=== PATIENT | female | born 1985 | race Caucasian/White ===

== ENCOUNTER 2024-03-23 02:43 | Emergency (ER) | payer OTHER, SELFPAY ==
[2024-03-23 02:43] VITALS: BMI 33.3
[2024-03-23 02:47] VITALS: BP 139/98
[2024-03-23 03:16] VITALS: BP 112/81
[2024-03-23 03:39] LABS: % Basophils 0.2 % (0-2); % Eosinophils 0.5 % (0-6); % Immature Granulocytes 0.2 % (0-0.5); % Lymphocytes 18.5 % (20.5-51.1); % Monocytes 6.4 % (1.7-9.3); % Neutrophils 74.2 % (42.2-75.2); Absolute Lymphocytes 1.6 10^3/uL (1.2-3.4); Absolute Monocytes 0.6 10^3/uL (0.1-0.6); Absolute Neutrophils 6.5 10^3/uL (1.4-6.5); Hematocrit 37.9 % (37.0-47.0); Hemoglobin 13.5 g/dL (12.0-16.0); Mean Corp Hgb Conc. 35.6 g/dL (33.0-37.0); Mean Corpuscular Hgb 31.3 pg (27.0-31.0); Mean Corpuscular Volume 87.9 fL (81.0-99.0); Mean Platelet Volume 8.4 fL (7.4-10.4); Nucleated Red Blood Cells % 0 %; Platelet Count 292 10^3/uL (130-400); Red Blood Cell Count 4.31 10^6/uL (4.20-5.40); White Blood Cell Count 8.7 10^3/uL (4.8-10.8)
[2024-03-23] MEDS: TORADOL 15 MG IV (03:41)
[2024-03-23] MEDS: NSS 1000 IV (03:42)
[2024-03-23 04:04] LABS: ALT (SGPT) 19 U/L (0-35); AST (SGOT) 24 U/L (14-36); Albumin 4.4 g/dl (3.5-5.0); Alkaline Phosphatase 63 U/L (38-126); Blood Urea Nitrogen 20 mg/dl (7-17); Calcium 9.5 mg/dl (8.4-10.2); Carbon Dioxide 27 mmol/L (22-30); Chloride 105 mmol/L (98-107); Estimated Creatinine Clearance 120 ml/min; Glucose 105 mg/dl (70-99); Lipase 79 U/L (23-300); Potassium 4.3 mmol/L (3.5-5.1); Sodium 138 mmol/L (135-145); Total Bilirubin 0.7 mg/dl (0.2-1.3); Total Protein 6.8 g/dl (6.3-8.2); eGFR > 60.00
--- NOTE | 2024-03-23 04:06 | ED.GENMED ---
History of Present Illness
General
Chief Complaint: Fainting/Passed Out
Time Seen by Provider: 03/23/24 02:53
History of Present Illness
History of Present Illness:
Pt is a 39 y/o female presenting with RUQ pain x2 weeks and passing out today. She states her pain is a constant, dull, 4/10 for the past 2 weeks. She states it is located to the RUQ and occasionally radiates to the right flank/back area. She states
that eating makes it worse. She states she has been having some nausea but no vomiting. She states that tonight she got out of beat, started to feel dizzy, and she passed out and hit her chin. She denies any seizure like activity. She denies any
headaches, fevers, cough, chest pain, palpations, shortness of breath, or changes in bowel habits.
Past History
Past History
ED Past Medical History: HTN
ED Past Surgical History: Appendectomy and
Social History
Tobacco: Non-smoker
Alcohol: None
Drug: None
Phy Exam
Physical Exam
Physical Exam:
GENERAL: Alert , in no apparent distress
EYE: pupils equal and reactive
Throat: Airway intact, no exudates
NECK: Supple, no significant adenopathy.
CARDIAC: Regular rate and rhythm .
LUNGS: Clear breath sounds bilaterally, no acute respiratory distress, no wheezes/rales/rhonchi
ABDOMEN: Pain to palpation in the RUQ. Soft, nondistended, no cvat
NEUROLOGICAL: Alert and oriented, no focal neuro deficits
SKIN: 3 cm laceration under the chin extending through the dermis.
MUSCULOSKELETAL: No edema, well perfused.
PSYCH: Normal and appropriate interaction.
Course
Orders/Labs/Results
Orders:
Orders
03/23/24 03:21
0.9% Sodium Chloride 1000 ml [Nss] 1,000 ml IV BOLUS
Ketorolac [Toradol] 15 mg IV NOW STA
Test Result ONCE
03/23/24 03:22
US Abdomen Complete/Upper Urgent
Comment:
Reason For Exam: ruq pain
03/23/24 03:32
Complete Blood Count/With Diff Urgent
Comprehensive Metabolic Panel Urgent
Lipase Urgent
03/23/24 04:51
HCG, Urine Qualitative Screen Urgent
Date Specimen was Collected: 03/23/24
Time Specimen was Collected: 04:47
Urinalysis Reflex To Culture Urgent
Date Specimen was Collected: 03/23/24
Time Specimen was Collected: 04:47
Abnormal Lab Results
03/23/24
03:32
MCH 31.3 H pg
(27.0-31.0)
Lymphocytes % 18.5 L %
(20.5-51.1)
BUN 20 H mg/dl
(7-17)
Glucose 105 H mg/dl
(70-99)
03/23/24 03:32
03/23/24 03:32
Vital Signs
Initial and Last Documented VS:
Initial Vital Signs
Temp Pulse Resp BP Pulse Ox
98.7 F 86 20 139/98 98
03/23/24 02:47 03/23/24 02:47 03/23/24 02:47 03/23/24 02:47 03/23/24 02:47
Last Documented Vital Signs
Temp Pulse Resp BP Pulse Ox
98.7 F 86 20 109/66 98
03/23/24 02:47 03/23/24 02:47 03/23/24 02:47 03/23/24 05:00 03/23/24 02:47
Procedures
Laceration Closure
Generalized Lower Anterior Medial Chin:
Status of Wound: clean
Size of Wound in cm: 3
Description of Wound Edges: sharp
Preparation: cleaned with saline
Anesthesia: 1% Lidocaine with epi
Revision/Debridement: routine- no revision
Wound exploration: explored to base- no FB
Type of Closure: single layer closure
Skin Closure Material: 5-0 chromic gut
Number of sutures: 6
*Radiology
Radiology exam reviewed: radiology read reviewed
*Pulse Oximetry
Patient hypoxic: no
*EKG
Interpreted by ED Provider?: NA
*Advertising Operations Coordinator Interpretation
Rate: Advertising Operations Coordinator- N/A
*Critical Care Note
Total Time (30-74mins, 75-104mins- exclusive of procedures): Not Applicable
ED Attending Note
-
Portions of this chart may have been created with voice recognition software.� Occasional wrong word or��sound alike� substitutions may have occurred due to the inherent limitations of voice recognition software.
Discharge Plan
Departure
Prescriptions:
No Action
acetaminophen 325 MG tablet
650 mg PO Q4HPRN PRN (Reason: mild pain) 0RF
ibuprofen 600 MG tablet
600 mg PO Q4HPRN PRN (Reason: cramps) 0RF
PNV 200-revzs-keuak-3-fish oil [ with DHA-Folic Acid] 1 EACH tablet,chewable
1 ea PO DAILY
Calcium Capsule
1 tab PO DAILY
Referrals:
Karishma Escobar MD [Family Provider] -
Interventions
Interventions:
*Risk Screen - Suicide Last Done: 03/23/24 02:47
*General Assessment Last Done: 03/23/24 02:47
*Neglect/Abuse Screening Last Done: 03/23/24 02:47
ED- Fall Risk Assessment Last Done: 03/23/24 02:47
*ED COVID-19 Vaccine History Last Done: 03/23/24 02:47
ED- Cardiac Assessment Last Done: 03/23/24 03:59
ED- Neurological Assessment Last Done: 03/23/24 03:59
ED-Skin Assessment Last Done: 03/23/24 03:59
Discharge Date and Time
Print Language: WELSH
[2024-03-23 05:00] VITALS: BP 109/66
[2024-03-23 05:06] LABS: Urine Albumin Trace (Neg - Trace); Urine Bilirubin Negative (Negative); Urine Character Clear (Clear); Urine Color Yellow; Urine Glucose Negative (Negative); Urine Ketone Negative (Negative); Urine Leukocyte Negative (Negative); Urine Nitrite Negative (Negative); Urine Occult Blood Negative (Negative); Urine Urobilinogen Negative (Neg - 1+)
[2024-03-23 05:16] LABS: HCG, Urine Qualitative Screen Negative
== END 2024-03-23 05:59 | disposition home or self-care (01) ==
LOC: EMR 02:43
PROVIDERS: EMERGENCY PHYSICIAN Emergency Medicine; FAMILY PHYSICIAN Emergency Medicine
DX: R55 Syncope and collapse (principal); I10 Essential (primary) hypertension; Z90.49 Acquired absence of other specified parts of digestive tract
CPT/HCPCS: 99284; 12013; 96374; 96361; 76700; 80053; 81003; 81025; 83690; 85025

== ENCOUNTER → 2024-04-22 09:06 | Outpatient (REF) | payer OTHER, SELFPAY | LOC: HWRCS 09:06 | PROVIDERS: ATTENDING PHYSICIAN Emergency Medicine | DX: R55 Syncope and collapse (principal); I49.3 Ventricular premature depolarization | CPT/HCPCS: 93306 ==

== ENCOUNTER → 2024-04-24 08:03 | Outpatient (REF) | payer OTHER, SELFPAY | LOC: RAD 08:03 | PROVIDERS: ATTENDING PHYSICIAN Surgery; FAMILY PHYSICIAN Emergency Medicine | DX: K82.8 Other specified diseases of gallbladder (principal) | CPT/HCPCS: 78227; A9537; J2805 ==

== ENCOUNTER → 2024-09-01 10:48 | Outpatient (REF) | payer OTHER, SELFPAY | LOC: PNTC 10:48 | PROVIDERS: ATTENDING PHYSICIAN Obstetrics & Gynecology | DX: O99.210 Obesity complicating pregnancy, unspecified trimester (principal); O09.529 Supervision of elderly multigravida, unspecified trimester; O13.9 Gestational [pregnancy-induced] hypertension without significant proteinuria, unspecified trimester | CPT/HCPCS: 76805 ==

== ENCOUNTER → 2024-09-29 16:02 | Outpatient (REF) | payer OTHER, SELFPAY | LOC: PNTC 16:02 | PROVIDERS: ATTENDING PHYSICIAN Obstetrics & Gynecology | DX: O99.210 Obesity complicating pregnancy, unspecified trimester (principal); O09.529 Supervision of elderly multigravida, unspecified trimester; O13.9 Gestational [pregnancy-induced] hypertension without significant proteinuria, unspecified trimester; O34.219 Maternal care for unspecified type scar from previous cesarean delivery | CPT/HCPCS: 76811; 76817; 93976 ==

== ENCOUNTER → 2024-10-27 16:13 | Outpatient (REF) | payer OTHER, SELFPAY | LOC: PNTC 16:13 | PROVIDERS: ATTENDING PHYSICIAN Student in an Organized Health Care Education/Training Program | DX: O09.519 Supervision of elderly primigravida, unspecified trimester (principal) | CPT/HCPCS: 76816 ==

== ENCOUNTER → 2024-12-02 16:32 | Outpatient (REF) | payer OTHER, SELFPAY | LOC: PNTC 16:32 | PROVIDERS: ATTENDING PHYSICIAN Student in an Organized Health Care Education/Training Program | DX: O09.529 Supervision of elderly multigravida, unspecified trimester (principal) | CPT/HCPCS: 76816 ==

== ENCOUNTER → 2024-12-25 10:01 | Outpatient (REF) | payer OTHER, SELFPAY | LOC: PNTC 10:01 | PROVIDERS: ATTENDING PHYSICIAN Obstetrics & Gynecology | DX: O09.529 Supervision of elderly multigravida, unspecified trimester (principal); O10.31 Pre-existing hypertensive heart and chronic kidney disease complicating pregnancy; O10.119 Pre-existing hypertensive heart disease complicating pregnancy, unspecified trimester; O99.210 Obesity complicating pregnancy, unspecified trimester | CPT/HCPCS: 59025; 76815 ==

== ENCOUNTER → 2025-01-01 09:53 | Outpatient (REF) | payer OTHER, SELFPAY | LOC: PNTC 09:53 | PROVIDERS: ATTENDING PHYSICIAN Obstetrics & Gynecology | DX: O09.529 Supervision of elderly multigravida, unspecified trimester (principal); O10.119 Pre-existing hypertensive heart disease complicating pregnancy, unspecified trimester; O99.210 Obesity complicating pregnancy, unspecified trimester | CPT/HCPCS: 59025; 76816 ==

== ENCOUNTER → 2025-01-08 10:45 | Outpatient (REF) | payer OTHER, SELFPAY | LOC: PNTC 10:45 | PROVIDERS: ATTENDING PHYSICIAN Obstetrics & Gynecology | DX: O09.529 Supervision of elderly multigravida, unspecified trimester (principal); O99.210 Obesity complicating pregnancy, unspecified trimester; O10.119 Pre-existing hypertensive heart disease complicating pregnancy, unspecified trimester | CPT/HCPCS: 59025; 76815 ==

== ENCOUNTER → 2025-01-15 10:34 | Outpatient (REF) | payer OTHER, SELFPAY | LOC: PNTC 10:34 | PROVIDERS: ATTENDING PHYSICIAN Obstetrics & Gynecology | DX: O09.529 Supervision of elderly multigravida, unspecified trimester (principal); O10.119 Pre-existing hypertensive heart disease complicating pregnancy, unspecified trimester; O99.210 Obesity complicating pregnancy, unspecified trimester | CPT/HCPCS: 59025; 76815 ==

== ENCOUNTER → 2025-01-22 10:44 | Outpatient (REF) | payer OTHER, SELFPAY | LOC: PNTC 10:44 | PROVIDERS: ATTENDING PHYSICIAN Obstetrics & Gynecology | DX: O09.529 Supervision of elderly multigravida, unspecified trimester (principal); O10.31 Pre-existing hypertensive heart and chronic kidney disease complicating pregnancy; O99.210 Obesity complicating pregnancy, unspecified trimester | CPT/HCPCS: 59025; 76815 ==

== ENCOUNTER 2025-01-23 21:02 | Observation (INO) | payer OTHER, SELFPAY ==
[2025-01-23 21:29] VITALS: BP 131/85; BMI 39.3
[2025-01-23] MEDS: LR 1000 IV (21:45)
[2025-01-23 22:02] LABS: Hematocrit 35.7 % (37.0-47.0); Hemoglobin 12.4 g/dL (12.0-16.0); Mean Corp Hgb Conc. 34.7 g/dL (33.0-37.0); Mean Corpuscular Hgb 30.6 pg (27.0-31.0); Mean Corpuscular Volume 88.1 fL (81.0-99.0); Mean Platelet Volume 9.6 fL (7.4-10.4); Platelet Count 221 10^3/uL (130-400); Red Blood Cell Count 4.05 10^6/uL (4.20-5.40); Red Cell Dist. Width 14.6 % (11.5-14.5); White Blood Cell Count 9.1 10^3/uL (4.8-10.8)
[2025-01-23 22:03] LABS: Urine Albumin 1+ (Neg - Trace); Urine Bilirubin Negative (Negative); Urine Character Clear (Clear); Urine Color Yellow; Urine Glucose Negative (Negative); Urine Ketone Negative (Negative); Urine Leukocyte Negative (Negative); Urine Nitrite Negative (Negative); Urine Occult Blood Negative (Negative); Urine Urobilinogen Negative (Neg - 1+)
[2025-01-23 22:14] LABS: Urine Squamous Cell >30 /LPF (Few)
[2025-01-23 22:15] LABS: Urine Bacteria Few (Negative); Urine Red Blood Cell 0-2 /HPF (0-2); Urine Yeast Few (Negative)
[2025-01-23 22:20] LABS: ALT (SGPT) 14 U/L (0-35); AST (SGOT) 30 U/L (14-36); Albumin 3.6 g/dl (3.5-5.0); Alkaline Phosphatase 118 U/L (38-126); Blood Urea Nitrogen 13 mg/dl (7-17); Calcium 8.7 mg/dl (8.4-10.2); Carbon Dioxide 20 mmol/L (22-30); Chloride 110 mmol/L (98-107); Estimated Creatinine Clearance > 125 ml/min; Glucose 79 mg/dl (70-99); Potassium 4.2 mmol/L (3.5-5.1); Sodium 135 mmol/L (135-145); Total Bilirubin 0.7 mg/dl (0.2-1.3); Total Protein 6.4 g/dl (6.3-8.2); eGFR > 60.00
[2025-01-23 22:29] LABS: Protein/creatinine Ratio 0.3; Urine Protein 13 mg/dl
== END 2025-01-23 23:09 | disposition home or self-care (01) ==
LOC: LDRP 21:02
PROVIDERS: ADMITTING PHYSICIAN Obstetrics & Gynecology; FAMILY PHYSICIAN Nurse Practitioner Family
DX: O26.893 Other specified pregnancy related conditions, third trimester (principal); Z3A.36 36 weeks gestation of pregnancy; E86.0 Dehydration; R11.12 Projectile vomiting; Z63.4 Disappearance and death of family member; Z63.79 Other stressful life events affecting family and household
CPT/HCPCS: 80053; 81003; 81015; 82570; 84156; 85027; 86850; 86900; 86901; G0378

== ENCOUNTER → 2025-01-29 10:18 | Outpatient (REF) | payer OTHER, SELFPAY | LOC: PNTC 10:18 | PROVIDERS: ATTENDING PHYSICIAN Obstetrics & Gynecology | DX: O14.00 Mild to moderate pre-eclampsia, unspecified trimester (principal); O09.529 Supervision of elderly multigravida, unspecified trimester; O99.210 Obesity complicating pregnancy, unspecified trimester | CPT/HCPCS: 59025; 76816 ==

== ENCOUNTER → 2025-02-05 10:24 | Outpatient (REF) | payer OTHER, SELFPAY | LOC: PNTC 10:24 | PROVIDERS: ATTENDING PHYSICIAN Obstetrics & Gynecology | DX: O09.529 Supervision of elderly multigravida, unspecified trimester (principal); O13.4 Gestational [pregnancy-induced] hypertension without significant proteinuria, complicating childbirth; O99.210 Obesity complicating pregnancy, unspecified trimester | CPT/HCPCS: 59025; 76815 ==

== ENCOUNTER 2025-02-10 09:38 | Inpatient (IN) | payer OTHER, SELFPAY ==
[2025-02-10 09:58] VITALS: BP 125/66; BMI 39.9
[2025-02-10] MEDS: ANCEF 10 IV (10:30)
[2025-02-10] MEDS: TYLENOL 1000 MG PO (10:30)
[2025-02-10] MEDS: LR 1000 IV (10:31)
[2025-02-10] MEDS: BICITRA 30 ML PO (10:31)
[2025-02-10 10:34] LABS: Hematocrit 36.8 % (37.0-47.0); Hemoglobin 12.9 g/dL (12.0-16.0); Mean Corp Hgb Conc. 35.1 g/dL (33.0-37.0); Mean Corpuscular Hgb 30.8 pg (27.0-31.0); Mean Corpuscular Volume 87.8 fL (81.0-99.0); Mean Platelet Volume 9.6 fL (7.4-10.4); Platelet Count 247 10^3/uL (130-400); Red Blood Cell Count 4.19 10^6/uL (4.20-5.40); Red Cell Dist. Width 15.5 % (11.5-14.5); White Blood Cell Count 8.9 10^3/uL (4.8-10.8)
[2025-02-10] MEDS: MORPHINE SULFATE 2 MG IV (15:28)
[2025-02-10 17:07] LABS: Glucose - Point of Care 64 mg/dl (70-99)
[2025-02-10] MEDS: TORADOL 15 MG IV (18:26)
[2025-02-10] MEDS: TYLENOL 650 MG PO (22:26)
[2025-02-11] MEDS: TORADOL 15 MG IV ×3 (00:43→13:34)
[2025-02-11 04:38] LABS: Hematocrit 31.7 % (37.0-47.0); Mean Corp Hgb Conc. 34.7 g/dL (33.0-37.0); Mean Corpuscular Hgb 30.8 pg (27.0-31.0); Mean Corpuscular Volume 88.8 fL (81.0-99.0); Mean Platelet Volume 9.6 fL (7.4-10.4); Platelet Count 221 10^3/uL (130-400); Red Blood Cell Count 3.57 10^6/uL (4.20-5.40); Red Cell Dist. Width 15.2 % (11.5-14.5); White Blood Cell Count 13.8 10^3/uL (4.8-10.8)
[2025-02-11] MEDS: TYLENOL 650 MG PO ×2 (08:04→13:35)
[2025-02-11] MEDS: PRENATAL PLUS 1 TABLET PO (08:04)
[2025-02-11] MEDS: PERCOCET 5/325 1 TABLET PO ×2 (18:19→22:27)
[2025-02-11] MEDS: MOTRIN 600 MG PO (20:04)
[2025-02-12] MEDS: MYLICON 80 MG PO ×2 (00:54→08:25)
[2025-02-12] MEDS: PERCOCET 5/325 1 TABLET PO ×2 (02:55→08:26)
[2025-02-12] MEDS: MOTRIN 600 MG PO ×3 (02:55→18:19)
[2025-02-12] MEDS: SENOKOT-S 1 TABLET PO (08:25)
[2025-02-12] MEDS: PRENATAL PLUS 1 TABLET PO (08:26)
[2025-02-12] MEDS: TYLENOL 650 MG PO ×3 (12:08→20:32)
[2025-02-13] MEDS: DULCOLAX 10 MG PO (00:21)
[2025-02-13] MEDS: MOTRIN 600 MG PO ×3 (00:29→13:30)
[2025-02-13] MEDS: TYLENOL 650 MG PO ×2 (01:24→12:17)
[2025-02-13] MEDS: PRENATAL PLUS 1 TABLET PO (07:13)
[2025-02-13] MEDS: SENOKOT-S 1 TABLET PO (07:14)
[2025-02-13] MEDS: PERCOCET 5/325 1 TABLET PO ×2 (07:17→17:22)
[2025-02-13 14:23] LABS: Syphilis/T. pallidum Ab Reflex Negative (Negative)
--- NOTE | 2025-02-13 17:16 | W.DS.TRANS ---
DC Summary - Wet Roaster
-
Discharge Instructions:
Discharge Diagnosis/Procedures delivered via repeat section
Diet No restrictions
Activity No strenuous activity
Driving Restrictions No driving for 2 weeks
Bathing Restrictions OK to Shower
Instructions:
Stand-Alone Forms: LDRP Delivery
Changes to Home Medications: No
Discharge Medications:
DC Medications w/original date entered in [employer]
103-folic acid 400 mcg-omeg3 32.5 mg-dha-fish oil chew tablet ( with DHA and Folic Acid) 1 ea PO DAILY Supplement 10/17/20
famotidine 20 mg tablet 20 mg PO DAILY 01/23/25
magnesium 1 tab PO DAILY 01/23/25
acetaminophen 325 mg tablet 650 mg (2 x 325 mg) PO Q4HPRN PRN mild pain #1 tab 02/13/25
ibuprofen 600 mg tablet 600 mg PO Q6HPRN PRN cramps #60 tabs 02/13/25
Home Medication Changes
Pending Results: No
--- NOTE | 2025-02-13 17:16 | W.DCSUMMARY ---
Discharge Summary
Discharge Data
Date of Admission: 02/10/25
Date of Discharge: 02/13/25
-
Pending Results: No
Hospital Course
Patient is a 40yo who presented to Labor and Delivery at 39.2 weeks on 02/10 for schedule repeat section. She had a history of 2 prior section and was not a candidate for a trial of labor. She underwent repeat
section on 02/10, delivering a viable male weighing 9lb 14oz with meconium stained amniotic fluid. The estimated blood loss for the procedure was 630mL. The procedure was uncomplicated. On postoperative day one, she was doing well with no
concerns. Her hemoglobin was 11.0 and she had no signs or symptoms of anemia. On postoperative day two, she was still doing well. Her pain was controlled. She was passing flatus, but had not had a bowel movement. On postoperative day three, she was
meeting all milestones. She was tolerating a regular diet, voiding spontaneously, passing flatus and had no heavy lochia. She was discharged home after discharge instructions and return precautions were reviewed. She was instructed to
follow up in 2 weeks for an incision check.
Discharge Plan
-
Patient Disposition: Home (Routine Discharge)
Discharge Diagnosis/Procedures: delivered via repeat section
Condition: Good
Diet: No restrictions
Activity: No strenuous activity
Driving Restrictions: No driving for 2 weeks
Bathing Restrictions: OK to Shower
Stand Alone Forms: LDRP Delivery
Referrals:
UNKNOWN,NO INTERVIEW [Family Provider]
Coni Burrell MD [Active, Gynecology] - in two weeks
Prescriptions:
New
acetaminophen 325 mg Tablet
650 mg PO Q4HPRN PRN (Reason: mild pain) Qty: 1 0RF
ibuprofen 600 mg Tablet
600 mg PO Q6HPRN PRN (Reason: cramps) Qty: 60 0RF
Continued
with DHA-Folic Acid 1 EACH tablet,chewable
1 ea PO DAILY
famotidine 20 mg Tablet
20 mg PO DAILY
magnesium
1 tab PO DAILY
Discontinued
Baby Aspirin
1 tab PO DAILY
Discharge Orders:
Discharge Patient (As Directed); Ordered 02/13/25
Ordered By: Sapna Jones
Discharge Date and Time
Print Language: JAPANESE
== END 2025-02-13 18:39 | disposition home or self-care (01) | DRG 788 ==
LOC: LDRP 09:38
PROVIDERS: ADMITTING PHYSICIAN Obstetrics & Gynecology
PROC: 10D00Z1 Extraction of Products of Conception, Low, Open Approach (ICD-10-PCS; 2025-02-10)
DX: O34.211 Maternal care for low transverse scar from previous cesarean delivery (principal); Z3A.39 39 weeks gestation of pregnancy; Z37.0 Single live birth; O77.0 Labor and delivery complicated by meconium in amniotic fluid; O36.63X0 Maternal care for excessive fetal growth, third trimester, not applicable or unspecified
CPT/HCPCS: 88307; 82962; 85027; 86780; 86850; 86900; 86901

== ENCOUNTER 2025-05-06 10:03 | Outpatient (RCR) | payer OTHER, SELFPAY | END 2025-05-06 23:59 | disposition home or self-care (01) | LOC: RPT 10:03 | PROVIDERS: ATTENDING PHYSICIAN Obstetrics & Gynecology; FAMILY PHYSICIAN Family Medicine | DX: M62.89 Other specified disorders of muscle (principal); Z73.6 Limitation of activities due to disability; R10.2 Pelvic and perineal pain; M62.81 Muscle weakness (generalized) | CPT/HCPCS: 97110; 97140; 97161; 97530 ==

== ENCOUNTER 2025-05-13 10:28 | Emergency (ER) | payer OTHER, SELFPAY ==
[2025-05-13 10:44] VITALS: BP 118/83
--- NOTE | 2025-05-13 11:53 | EDRN ---
N, Pawan COIL CONNECTOR in room w/ pt at this time.
--- NOTE | 2025-05-13 12:03 | EDRN ---
Pt in BR at this time.
[2025-05-13 12:06] VITALS: BMI 45.1
[2025-05-13 12:38] LABS: Hematocrit 40.8 % (37.0-47.0); Hemoglobin 14.4 g/dL (12.0-16.0); Mean Corp Hgb Conc. 35.3 g/dL (33.0-37.0); Mean Corpuscular Volume 90.1 fL (81.0-99.0); Nucleated Red Blood Cells % 0 %; Platelet Count 279 10^3/uL (130-400); Red Cell Dist. Width 12.2 % (11.5-14.5)
[2025-05-13 12:59] LABS: Blood Urea Nitrogen 16 mg/dl (7-17); Calcium 9.5 mg/dl (8.4-10.2); Carbon Dioxide 29 mmol/L (22-30); Chloride 103 mmol/L (98-107); Estimated Creatinine Clearance > 125 ml/min; Glucose 112 mg/dl (70-99); Potassium 4.5 mmol/L (3.5-5.1); Sodium 138 mmol/L (135-145); eGFR > 60.00
[2025-05-13 13:23] VITALS: BP 142/55
--- NOTE | 2025-05-13 13:24 | EDRN ---
Pt asking for pain medication w/ N. Pawan LIBRARY ATTENDANT informed at this time.
--- NOTE | 2025-05-13 13:27 | EDRN ---
Coag tube hemolyzed per lab and Lillian PCT will redraw.
[2025-05-13] MEDS: TORADOL 15 MG IV (13:36)
--- NOTE | 2025-05-13 13:50 | EDRN ---
PT/INR and PTT were canceled by Bryson Villalta NP so not redrawn.
[2025-05-13 14:38] VITALS: BP 129/75; BP 137/89; BP 143/87; PULSE 88; PULSE 92; PULSE 96
[2025-05-13 14:39] VITALS: BP 143/87
--- NOTE | 2025-06-09 08:23 | ED.GENMED ---
History of Present Illness
General
Chief Complaint: Vaginal Bleeding
Source: patient
Exam Limitations: none
Time Seen by Provider: 05/13/25 11:44
Nursing documentation reviewed up to this point in time: agreed with
History of Present Illness
History of Present Illness:
patient is a 40-year-old female status post 3 months ago presents for heavy vaginal bleeding. This is her first menses since having vaginal delivery. She did bleed through her super tampon every hour this morning. Patient denies any
lightheaded dizziness fever chills. She is followed by [facility]
Past History
Past History
ED Past Medical History: HTN
ED Past Surgical History: Appendectomy and
Social History
Tobacco: Non-smoker
Alcohol: None
Drug: None
Phy Exam
General Physical Exam
General Presentation: no apparent distress
General age: appears stated age
General Skin: warm and dry
General Habitus: normal
General Mental: alert
General Hydration: appears well hydrated
Cardiovascular Exam
Cardiovascular Exam: regular rate/rhythm, no murmur and normal peripheral pulses
Pulmonary Exam
Pulmonary Exam: lungs clear and no respiratory distress
Gastrointestinal Exam
Gastrointestinal Exam: non tender and soft
Genitourinary Exam Female
Exam Female: other (No active bleeding, positive blood in the vaginal vault)
Neurological Exam
Neurological Exam: alert and oriented x3
Musculoskeletal Exam
Musculoskeletal Exam: full ROM
Skin Exam
Skin Exam: normal color and warm/dry
Psychiatric Exam
Psychiatric Exam: normal mood/affect
Course
Orders/Labs/Results
Orders:
Orders
05/13/25 11:04
US Pelvis W Transvag Combined Urgent
Comment: ? retained products of conception
Reason For Exam: 1st menses 3 mo PP and bleeding excessively
05/13/25 12:22
BMP [Basic Metabolic Panel] Urgent
Complete Blood Count/With Diff Urgent
05/13/25 13:31
Ketorolac [Toradol] 15 mg .ROUTE .STK-MED ONE
05/13/25 13:32
Ketorolac [Toradol] 15 mg IV NOW STA
Abnormal Lab Results
05/13/25
12:22
MCH 31.8 H pg
(27.0-31.0)
Monocytes % 10.0 H %
(1.7-9.3)
Glucose 112 H mg/dl
(70-99)
05/13/25 12:22
05/13/25 12:22
Vital Signs
Initial and Last Documented VS:
Initial Vital Signs
Temp Pulse Resp BP Pulse Ox
98.6 F 102 16 118/83 96
05/13/25 10:44 05/13/25 10:44 05/13/25 10:44 05/13/25 10:44 05/13/25 10:44
Last Documented Vital Signs
Temp Pulse Resp BP Pulse Ox
98.6 F 88 16 143/87 99
05/13/25 10:44 05/13/25 14:39 05/13/25 14:39 05/13/25 14:39 05/13/25 14:39
MDM/Problems Addressed
Differential Diagnosis Includes:
Not limited to vaginal bleeding, less likely retained products, anemia
MDM/Problems Addressed:
Patient is document is a 40-year-old female status post 3 months ago presents for heavy vaginal bleeding. On exam patient is in no acute distress hemoglobin stable at 4.4. Ultrasound shows echogenic endometrium measuring 16 mm in
thickness no presence of retained conception. Patient with no acute active vaginal bleeding there is small mount of blood in the vaginal vault. Case reviewed with NEW ACCOUNTS REPRESENTATIVE who does recommend TXA 650 mg 3 times daily for up to 5 days and to follow-up
with Dr. Burrell.
Chronic conditions affecting care:
recent c section 3 mos ago
*Radiology
Radiology exam reviewed: radiology read reviewed
*Pulse Oximetry
SaO2: 99
Oxygen Mode of Delivery: Room air
Patient hypoxic: no
*Critical Care Note
Total Time (30-74mins, 75-104mins- exclusive of procedures): Not Applicable
Patient Management
Discussion with other providers: Home Care Scheduler (obgyn Dr Soriano )
ED Attending Note
-
Portions of this chart may have been created with voice recognition software.� Occasional wrong word or��sound alike� substitutions may have occurred due to the inherent limitations of voice recognition software.
Discharge Plan
Departure
Patient Disposition: Home (Routine Discharge)
Date of Disposition: 05/13/25
Time of Disposition: 14:41
Patient with high blood pressure during this ER visit?: Yes
Condition: Fair
Covid-19: Not Applicable
Discharge Problem:
Vaginal bleeding
Instructions: Heavy periods - ED (DC)
Prescriptions:
New
tranexamic acid 650 mg tablet
650 mg PO Q8H Qty: 15 0RF
No Action
with DHA-Folic Acid 1 EACH tablet,chewable
1 ea PO DAILY
famotidine 20 mg Tablet
20 mg PO DAILY
magnesium
1 tab PO DAILY
acetaminophen 325 mg Tablet
650 mg PO Q4HPRN PRN (Reason: mild pain) Qty: 1 0RF
ibuprofen 600 mg Tablet
600 mg PO Q6HPRN PRN (Reason: cramps) Qty: 60 0RF
Referrals:
joel syed [Other]
Karishma Escobar MD [Family Provider, Internal Medicine]
Joel Burrell MD [Active, Gynecology]
Activity Restrictions/Additional Instructions:
As discussed a prescription for tranexamic acid was sent to pharmacy take 650 mg 3 times a day for up to 5 days. Please call your NEW ACCOUNTS REPRESENTATIVE office today to make an appointment this week. Return if any worsening of symptoms.
Interventions
Interventions:
*Risk Screen - Suicide Last Done: 05/13/25 10:38
*General Assessment Last Done: 05/13/25 10:38
*Neglect/Abuse Screening Last Done: 05/13/25 10:38
*ED- Fall Risk Assessment Last Done: 05/13/25 12:07
*ED COVID-19 Vaccine History Last Done: 05/13/25 12:07
*Nursing Disposition Last Done: 05/13/25 15:05
ED-Female Genitourinary Assessment Last Done: 05/13/25 11:21
Discharge Date and Time
Discharge Date/Time: 05/13/25 15:05
Print Language: PERUVIAN
== END 2025-05-13 15:05 | disposition home or self-care (01) ==
LOC: EMR 10:28
PROVIDERS: Emergency Medicine; Nurse Practitioner; EMERGENCY PHYSICIAN Emergency Medicine; FAMILY PHYSICIAN Emergency Medicine
DX: N93.9 Abnormal uterine and vaginal bleeding, unspecified (principal); I10 Essential (primary) hypertension
CPT/HCPCS: 99284; 96374; 76830; 76856; 80048; 85025

== ENCOUNTER 2025-06-15 07:36 | Outpatient (RCR) | payer OTHER, SELFPAY | END 2025-06-15 23:59 | disposition home or self-care (01) | LOC: RPT 07:36 | PROVIDERS: ATTENDING PHYSICIAN Obstetrics & Gynecology; FAMILY PHYSICIAN Family Medicine | DX: M62.89 Other specified disorders of muscle (principal); Z73.6 Limitation of activities due to disability; R10.20 Pelvic and perineal pain unspecified side; R10.2 Pelvic and perineal pain; M62.81 Muscle weakness (generalized) | CPT/HCPCS: 97110; 97112; 97140 ==

== ENCOUNTER → 2025-06-29 14:53 | Outpatient (REF) | payer OTHER, SELFPAY | LOC: HWRCS 14:53 | PROVIDERS: ATTENDING PHYSICIAN Internal Medicine Cardiovascular Disease; FAMILY PHYSICIAN Emergency Medicine | DX: I34.0 Nonrheumatic mitral (valve) insufficiency (principal); I34.1 Nonrheumatic mitral (valve) prolapse | CPT/HCPCS: 93306 ==

== ENCOUNTER 2025-07-01 07:11 | Outpatient (RCR) | payer OTHER, SELFPAY | END 2025-07-01 23:59 | disposition home or self-care (01) | LOC: RPT 07:11 | PROVIDERS: ATTENDING PHYSICIAN Obstetrics & Gynecology; FAMILY PHYSICIAN Family Medicine | DX: M62.89 Other specified disorders of muscle (principal); Z73.6 Limitation of activities due to disability; R10.20 Pelvic and perineal pain unspecified side; M62.81 Muscle weakness (generalized); R10.2 Pelvic and perineal pain | CPT/HCPCS: 97110; 97112; 97140 ==

== ENCOUNTER 2025-07-27 07:11 | Outpatient (RCR) | payer OTHER, SELFPAY | END 2025-07-27 23:59 | disposition home or self-care (01) | LOC: RPT 07:11 | PROVIDERS: ATTENDING PHYSICIAN Obstetrics & Gynecology; FAMILY PHYSICIAN Family Medicine | DX: M62.89 Other specified disorders of muscle (principal); Z73.6 Limitation of activities due to disability; R10.20 Pelvic and perineal pain unspecified side; M62.81 Muscle weakness (generalized); R10.2 Pelvic and perineal pain | CPT/HCPCS: 97110; 97112; 97140 ==